=== PATIENT | male | born 1995 | race African-American/Black ===

== ENCOUNTER 2016-06-25 10:02 | Emergency (ER) | payer MEDICAID, OTHER ==
[~2016-06-25] VITALS: Ht 185.4 cm; Wt 91.0 kg
[2016-06-25 10:24] VITALS: BP 155/79
[2016-06-25] MEDS ORDERED: ACETAMINOPHEN 500MG TABLET PO ONE (12:45)
== END 2016-06-25 14:24 | disposition home or self-care (01) ==
LOC: ER 12:58
DX: S60.222A Contusion of left hand, initial encounter (principal); W22.01XA Walked into wall, initial encounter; Y93.89 Activity, other specified; Y92.018 Other place in single-family (private) house as the place of occurrence of the external cause
CPT/HCPCS: 73130; 99284

== ENCOUNTER 2016-08-17 00:46 | Emergency (ER) | payer OTHER ==
[~2016-08-17] VITALS: Ht 190.5 cm; Wt 86.0 kg
[2016-08-17] MEDS ORDERED: ACETAMINOPHEN WITH CODEINE 300/30MG TABLET PO ONE (04:45)
[2016-08-17 06:18] VITALS: BP 144/92
== END 2016-08-17 06:19 | disposition home or self-care (01) ==
LOC: ER 00:47
DX: S83.92XA Sprain of unspecified site of left knee, initial encounter (principal); X58.XXXA Exposure to other specified factors, initial encounter; Y93.67 Activity, basketball; Y92.89 Other specified places as the place of occurrence of the external cause; Y99.8 Other external cause status
CPT/HCPCS: 29505; 73562; 99284; Z7610

== ENCOUNTER 2017-12-31 13:31 | Emergency (ER) | payer MEDICAID, OTHER ==
[~2017-12-31] VITALS: Ht 188 cm; Wt 86.0 kg
[2017-12-31] MEDS ORDERED: IBUPROFEN 800MG TABLET PO ONE (16:00)
[2017-12-31] MEDS ORDERED: ACETAMINOPHEN 325MG TABLET PO ONE (16:00)
[2017-12-31 16:41] VITALS: BP 145/88
== END 2017-12-31 16:45 | disposition home or self-care (01) ==
LOC: ER 13:35
DX: S60.222A Contusion of left hand, initial encounter (principal); S90.32XA Contusion of left foot, initial encounter; Y93.67 Activity, basketball; Y93.89 Activity, other specified; Y92.9 Unspecified place or not applicable
CPT/HCPCS: 73130; 73630; 99284

== ENCOUNTER 2019-01-06 12:15 | Emergency (ER) | payer MEDICAID, OTHER ==
[~2019-01-06] VITALS: Ht 190.5 cm; Wt 73.0 kg
[2019-01-06] MEDS ORDERED: TETANUS, DIPHTHERIA, PERTUSSIS VAC/PF 0.5ML (>7YR OLD) IM ONE (13:15)
[2019-01-06] MEDS ORDERED: LIDOCAINE HCL/PF 1% 10 MG/ML 5ML VIAL IJ ONE (13:15)
[2019-01-06 14:25] VITALS: BP 127/80
== END 2019-01-06 14:25 | disposition home or self-care (01) ==
LOC: ER 12:15
DX: S01.81XA Laceration without foreign body of other part of head, initial encounter (principal); X58.XXXA Exposure to other specified factors, initial encounter; Y93.67 Activity, basketball; Y92.9 Unspecified place or not applicable
CPT/HCPCS: 12011; 90471; 90715; 99283; J3490